=== PATIENT | male | born 1965 | race Caucasian/White ===

== ENCOUNTER 2022-06-29 19:35 | Inpatient (IN) | payer OTHER, BC ==
[~2022-06-29 19:35] MED LIST: Iopamidol-370 76% 500 ML 1 ML ONE
[2022-06-29] MEDS ORDERED: FENTANYL 50 MCG/ML 1 ML VIAL ONE (19:47)
[2022-06-29 20:17] LABS: Hemoglobin 13.5 g/dL (14.0-18.0); Mean Corpuscular HGB CONC 34.3 g/dL (32.0-36.0); Mean Corpuscular Hemoglobin 31.2 pg (27.0-31.0); Mean Corpuscular Volume 90.8 fl (78.0-98.0); Mean Platelet Volume 8.4 fL (7.4-10.4); Platelet Count 164 10x3/uL (130-400); RBC Distribution Width 12.8 % (11.5-14.5); Red Blood Cell (RBC) Count 4.34 mill/uL (4.70-6.10); White Blood Cell (WBC) Count 7.7 10x3/uL (4.8-10.8)
[2022-06-29 20:23] LABS: PTT 34.4 sec (22.9-36.1); Prothrombin Time 13.5 sec (12.0-14.7)
[2022-06-29 20:25] LABS: Acetaminophen Less than 10.0 mcg/mL (10.0-30.0); Alcohol 325 mg/dL (Less than 10); CK (CPK) 104 U/L (30-200); Salicylate Less than 8.0 mg/dL (15.0-30.0)
[2022-06-29 20:28] LABS: ALT (SGPT) 61 U/L (8-55); AST (SGOT) 121 U/L (5-34); Albumin 3.9 g/dL (3.5-5.0); Alkaline Phosphatase 160 U/L (40-110); Anion Gap 18 mmol/L (10-20); BUN (Urea Nitrogen) 11 mg/dL (8.4-25.7); Bilirubin, Total 0.6 mg/dL (0.2-1.2); Calc. Creatinine Clearance 0 mL/min (70-130); Calcium 8.9 mg/dL (7.8-10.44); Carbon Dioxide 22 mmol/L (22-29); Chloride 101 mmol/L (98-107); Estimated GFR 86; Globulin 2.5 g/dL (2.4-3.5); Glucose 277 mg/dL (70-105); Lipase 18 U/L (8-78); Potassium 3.3 mmol/L (3.5-5.1); Protein, Total 6.4 g/dL (6.0-8.3); Sodium 138 mmol/L (136-145)
[2022-06-29 20:45] LABS: Band 2 % (5-11); Lymphocytes 58 % (21-51); MDiff Complete? YES; Monocytes 4 % (0-10); Neutrophil 36 % (42-75); Nucleated RBC 1 % (0)
[2022-06-29 20:47] LABS: SARS-CoV-2 NAA Rapid Test Not Detected (NotDetected)
[2022-06-29] MEDS ORDERED: Ketorolac Tromethamine 30 MG/ML VIAL ONE (21:28)
[2022-06-29] MEDS ORDERED: Multivitamins, Adult 10 ML, Thiamine HCl 100 MG, Folic Acid 1 MG in Dextrose 5 %-0.45 %... IV SCH (21:30)
[2022-06-29] MEDS ORDERED: hydrALAZINE 20 MG/ML VIAL SLOW IVP PRN (21:30)
[2022-06-29] MEDS ORDERED: Acetaminophen 325 MG TAB PO SCH (21:30)
[2022-06-29] MEDS ORDERED: Cyclobenzaprine 10 MG TAB PO PRN (21:30)
[2022-06-29] MEDS ORDERED: Ondansetron PF 4 MG/2 ML Vial IVP PRN (21:30)
[2022-06-29] MEDS ORDERED: Morphine 4 MG/ML VIAL SLOW IVP PRN ×2 (21:37→21:41)
[2022-06-29] MEDS ORDERED: Dextrose 50% Abboject 50 ML SYRINGE SLOW IVP PRN (21:39)
[2022-06-29] MEDS ORDERED: TETANUS, DIPHTHERIA TOX,ADULT (TDVAX) 0.5 ML VIAL IM ONE (21:39)
[2022-06-29] MEDS ORDERED: Ondansetron ODT 4 MG TAB PO PRN (21:39)
[2022-06-29] MEDS ORDERED: Insulin Regular 300 UNITS/3 ML VIAL SC PRN (21:39)
[2022-06-29] MEDS ORDERED: Dextrose 5% in Water 1,000 ML IV PRN (21:39)
[2022-06-29 21:49] LABS: Hemoglobin A1c 8.5 % (4.0-6.0)
[2022-06-29 21:54] LABS: Magnesium 1.3 mg/dL (1.6-2.6); Phosphorus 2.1 mg/dL (2.3-4.7)
[2022-06-29 21:58] LABS: Lactic Acid 2.3 mmol/L (0.5-2.2)
[2022-06-29] MEDS ORDERED: Magnesium 2 GM/50 ML(in water) 4 GM in Premix Bag 1 BAG IVPB SCH (22:30)
[2022-06-29] MEDS: Sodium Chloride 0.9% 1,000 ML IV SCH (22:43)
[2022-06-29] MEDS: Oxazepam 10 MG CAP PO SCH (22:44)
[2022-06-29] MEDS: traMADol HCl 50 MG TAB PO SCH (22:44)
[2022-06-29] MEDS: Acetaminophen 500 MG TAB PO SCH (22:44)
[2022-06-29] MEDS: Gabapentin 300 MG CAP PO SCH (22:44)
[2022-06-29] MEDS ORDERED: Potassium Phosphate 30 MMOL, Magnesium Sulfate 4 GM in Sodium Chloride 0.9% 250 ML 250 ML IVPB SCH (22:45)
[2022-06-29] MEDS: Ketorolac Tromethamine 30 MG/ML VIAL IVP SCH (23:26)
[2022-06-30] MEDS: traMADol HCl 50 MG TAB PO SCH ×4 (03:34→21:05)
[2022-06-30] MEDS: Acetaminophen 500 MG TAB PO SCH ×4 (03:34→21:05)
[2022-06-30 06:22] LABS: #Basophils 0.1 thou/uL (0.0-0.2); #Eosinphils 0.1 thou/uL (0.0-0.7); #Lymphocytes 1.8 thou/uL (1.20-3.40); #Monocytes 0.6 thou/uL (0.11-0.59); #Neutrophils 2.8 thou/uL (1.40-6.50); %Basophils 1.1 % (0.0-1.0); %Eosinophils 1.8 % (0.0-10.0); %Lymphocytes 34.1 % (21.0-51.0); Hemoglobin 12.3 g/dL (14.0-18.0); Mean Corpuscular HGB CONC 33.3 g/dL (32.0-36.0); Mean Corpuscular Hemoglobin 30.4 pg (27.0-31.0); Mean Corpuscular Volume 91.4 fl (78.0-98.0); Mean Platelet Volume 8.5 fL (7.4-10.4); Platelet Count 141 10x3/uL (130-400); RBC Distribution Width 12.8 % (11.5-14.5); Red Blood Cell (RBC) Count 4.05 mill/uL (4.70-6.10); White Blood Cell (WBC) Count 5.4 10x3/uL (4.8-10.8)
[2022-06-30] MEDS: Sodium Chloride 0.9% 1,000 ML IV SCH ×2 (06:25→16:09)
[2022-06-30] MEDS: Gabapentin 300 MG CAP PO SCH ×3 (06:25→21:06)
[2022-06-30] MEDS: Ketorolac Tromethamine 30 MG/ML VIAL IVP SCH (06:25)
[2022-06-30] MEDS: Oxazepam 10 MG CAP PO SCH ×3 (06:25→21:05)
[2022-06-30] MEDS: Insulin Regular 300 UNITS/3 ML VIAL SC PRN ×2 (06:26→17:59)
[2022-06-30] MEDS: Folic Acid/Vit B Comp W-C PO SCH (06:26)
[2022-06-30 06:46] LABS: Anion Gap 15 mmol/L (10-20); BUN (Urea Nitrogen) 11 mg/dL (8.4-25.7); Calc. Creatinine Clearance 120 mL/min (70-130); Calcium 8.4 mg/dL (7.8-10.44); Carbon Dioxide 24 mmol/L (22-29); Chloride 103 mmol/L (98-107); Estimated GFR 101; Glucose 209 mg/dL (70-105); Magnesium 2.1 mg/dL (1.6-2.6); Phosphorus 3.8 mg/dL (2.3-4.7); Potassium 3.2 mmol/L (3.5-5.1); Sodium 139 mmol/L (136-145)
[2022-06-30] MEDS ORDERED: Potassium Chloride 40 MEQ in Sodium Chloride 0.9% 250 ML 250 ML IVPB SCH (08:15)
[2022-06-30] MEDS ORDERED: Famotidine 20 MG TAB PO SCH (09:00)
[2022-06-30] MEDS: Senokot S 8.6-50 MG TAB PO SCH ×2 (09:35→21:06)
[2022-06-30] MEDS: Polyethylene Glycol 3350 17 GM Packet PO SCH (09:35)
[2022-06-30] MEDS: Metoprolol Tartrate 50 MG TAB PO SCH ×2 (09:36→21:06)
[2022-06-30] MEDS: Thiamine 100 MG TAB PO SCH (09:37)
[2022-06-30] MEDS: Multivitamin W/ Minerals 1 TAB PO SCH (09:37)
[2022-06-30] MEDS: Tamsulosin HCl 0.4 MG CAP PO SCH (09:37)
[2022-06-30] MEDS: Amlodipine 5 MG TAB PO SCH (09:37)
[2022-06-30] MEDS: Ibuprofen 200 MG TAB PO SCH ×2 (14:14→21:04)
[2022-07-01] MEDS: Sodium Chloride 0.9% 1,000 ML IV SCH ×2 (01:21→12:23)
[2022-07-01] MEDS: traMADol HCl 50 MG TAB PO SCH ×2 (03:52→09:28)
[2022-07-01] MEDS: Acetaminophen 500 MG TAB PO SCH ×3 (03:52→16:58)
[2022-07-01] MEDS: Gabapentin 300 MG CAP PO SCH ×2 (06:33→14:12)
[2022-07-01] MEDS: Ibuprofen 200 MG TAB PO SCH ×2 (06:33→14:12)
[2022-07-01] MEDS: Oxazepam 10 MG CAP PO SCH ×2 (06:33→14:13)
[2022-07-01] MEDS: Folic Acid/Vit B Comp W-C PO SCH (06:33)
[2022-07-01 07:10] LABS: Anion Gap 10 mmol/L (10-20); BUN (Urea Nitrogen) 8 mg/dL (8.4-25.7); Calc. Creatinine Clearance 142 mL/min (70-130); Calcium 8.2 mg/dL (7.8-10.44); Carbon Dioxide 24 mmol/L (22-29); Chloride 106 mmol/L (98-107); Estimated GFR 106; Glucose 131 mg/dL (70-105); Magnesium 1.3 mg/dL (1.6-2.6); Phosphorus 2.6 mg/dL (2.3-4.7); Sodium 137 mmol/L (136-145)
[2022-07-01 07:34] LABS: #Eosinphils 0.1 thou/uL (0.0-0.7); #Monocytes 0.3 thou/uL (0.11-0.59); #Neutrophils 1.9 thou/uL (1.40-6.50); %Basophils 0.5 % (0.0-1.0); %Eosinophils 2.4 % (0.0-10.0); %Lymphocytes 30.5 % (21.0-51.0); %Monocytes 9.3 % (0.0-10.0); %Neutrophils 57.3 % (42.0-75.0); Hemoglobin 11.4 g/dL (14.0-18.0); Mean Corpuscular HGB CONC 32.9 g/dL (32.0-36.0); Mean Corpuscular Hemoglobin 30.6 pg (27.0-31.0); Mean Corpuscular Volume 92.9 fl (78.0-98.0); Mean Platelet Volume 8.5 fL (7.4-10.4); Platelet Count 89 10x3/uL (130-400); Platelet Morphology Comment Appears Decreased; RBC Distribution Width 12.6 % (11.5-14.5); RBC Morphology Normal; Red Blood Cell (RBC) Count 3.73 mill/uL (4.70-6.10); White Blood Cell (WBC) Count 3.4 10x3/uL (4.8-10.8)
[2022-07-01] MEDS ORDERED: Magnesium 2 GM/50 ML(in water) 4 GM in Premix Bag 1 BAG IVPB SCH (08:15)
[2022-07-01] MEDS ORDERED: Potassium Phosphate 30 MMOL, Magnesium Sulfate 4 GM in Sodium Chloride 0.9% 250 ML 250 ML IVPB SCH (08:45)
[2022-07-01 09:16] VITALS: TEMP 97.8
[2022-07-01] MEDS: Polyethylene Glycol 3350 17 GM Packet PO SCH (09:27)
[2022-07-01] MEDS: Thiamine 100 MG TAB PO SCH (09:28)
[2022-07-01] MEDS: Tamsulosin HCl 0.4 MG CAP PO SCH (09:28)
[2022-07-01] MEDS: Metoprolol Tartrate 50 MG TAB PO SCH (09:28)
[2022-07-01] MEDS: Multivitamin W/ Minerals 1 TAB PO SCH (09:28)
[2022-07-01] MEDS: Amlodipine 5 MG TAB PO SCH (09:29)
[2022-07-01] MEDS: Senokot S 8.6-50 MG TAB PO SCH (09:29)
[2022-07-01] MEDS ORDERED: metFORMIN 500 MG TAB PO SCH ×2 (11:30→17:00)
[2022-07-01] MEDS: Acetaminophen/Codeine 30-300mg Tablet PO SCH ×2 (11:49→16:57)
[2022-07-01 17:25] VITALS: BP 147/89
== END 2022-07-01 17:20 | disposition home or self-care (01) | DRG 184 ==
LOC: ERS 19:35 → SURG B 20:50 → OBSVTOIN 06-30 14:31
PROVIDERS: ADMIT Surgery; ATTEND Surgery
DX: S22.41XA Multiple fractures of ribs, right side, initial encounter for closed fracture (principal); K86.2 Cyst of pancreas; Z20.822 Contact with and (suspected) exposure to COVID-19; F10.129 Alcohol abuse with intoxication, unspecified; Y90.8 Blood alcohol level of 240 mg/100 ml or more; S06.0X0A Concussion without loss of consciousness, initial encounter; I10 Essential (primary) hypertension; E11.65 Type 2 diabetes mellitus with hyperglycemia; S00.81XA Abrasion of other part of head, initial encounter; S80.812A Abrasion, left lower leg, initial encounter; S80.211A Abrasion, right knee, initial encounter; S50.311A Abrasion of right elbow, initial encounter; S40.811A Abrasion of right upper arm, initial encounter; R40.2412 Glasgow coma scale score 13-15, at arrival to emergency department; R33.9 Retention of urine, unspecified; V44.5XXA Car driver injured in collision with heavy transport vehicle or bus in traffic accident, initial encounter; Y92.410 Unspecified street and highway as the place of occurrence of the external cause; Z90.49 Acquired absence of other specified parts of digestive tract; Z87.891 Personal history of nicotine dependence
CPT/HCPCS: 36415; 36416; 70450; 71045; 71260; 72125; 72170; 74177; 80048; 80053; 80307; 82550; 83036; 83605; 83690; 83735; 84100; 85025; 85610; 85730; 86850; 86900; 86901; 93005; 94640; 96375; 96376; G0378; G0390; J1815; J1885; J3010; J3411; J3475; J3480; J7042; J7050; J7620; Q9967; U0002

== ENCOUNTER 2022-11-24 15:58 | Inpatient (IN) | payer BC ==
[~2022-11-24 15:58] MED LIST changes: -Iopamidol-370 76% 500 ML 1 ML ONE; +Iopamidol-370 76% 500 ML MDV (1 ML CHARGE) ONE
[2022-11-24 17:15] LABS: #Basophils 0.1 thou/uL (0.0-0.2); #Lymphocytes 2.4 thou/uL (1.20-3.40); #Monocytes 0.5 thou/uL (0.11-0.59); #Neutrophils 4.1 thou/uL (1.40-6.50); %Basophils 0.8 % (0.0-1.0); %Eosinophils 0.6 % (0.0-10.0); %Lymphocytes 33.3 % (21.0-51.0); %Monocytes 7.5 % (0.0-10.0); %Neutrophils 57.8 % (42.0-75.0); Mean Corpuscular HGB CONC 34.9 g/dL (32.0-36.0); Mean Corpuscular Hemoglobin 32.9 pg (27.0-31.0); Mean Corpuscular Volume 94.1 fl (78.0-98.0); Mean Platelet Volume 8.7 fL (7.4-10.4); Platelet Count 148 10x3/uL (130-400); RBC Distribution Width 13.1 % (11.5-14.5); Red Blood Cell (RBC) Count 4.27 mill/uL (4.70-6.10); White Blood Cell (WBC) Count 7.1 10x3/uL (4.8-10.8)
[2022-11-24 17:39] LABS: ALT (SGPT) 92 U/L (8-55); AST (SGOT) 234 U/L (5-34); Albumin 3.8 g/dL (3.5-5.0); Alcohol 266 mg/dL (Less than 10); Alkaline Phosphatase 355 U/L (40-110); Anion Gap 20 mmol/L (10-20); BUN (Urea Nitrogen) 9 mg/dL (8.4-25.7); Bilirubin, Total 1.7 mg/dL (0.2-1.2); CK (CPK) 55 U/L (30-200); Calc. Creatinine Clearance 0 mL/min (70-130); Calcium 9.4 mg/dL (7.8-10.44); Carbon Dioxide 24 mmol/L (22-29); Chloride 98 mmol/L (98-107); Estimated GFR 101; Globulin 2.5 g/dL (2.4-3.5); Glucose 248 mg/dL (70-105); Lipase 120 U/L (8-78); Protein, Total 6.3 g/dL (6.0-8.3); Sodium 139 mmol/L (136-145)
[2022-11-24 18:55] LABS: Bacteria/HPF 4+ HPF (None Seen); Bilirubin Negative (Negative); Blood, Urine 1+ (Negative); Clarity Turbid (Clear); Glucose, Urine (Dipstick) 100 mg/dL (Negative); Ketone, Urine Negative (Negative); Leukocyte Negative Leu/uL (Negative); Mucous/LPF Rare LPF (<2+); Nitrite Negative (Negative); Protein, Urine (Dipstick) 70 mg/dL (Neg-Trace); RBC/HPF 0-3 HPF (0-3); Specific Gravity, Urine 1.011 (1.002-1.036); Squamous Epithelial None Seen HPF (0-3); pH, Urine 6.5 (5.0-9.0)
[2022-11-24 19:19] LABS: INR-International Normal Ratio 1.1; Prothrombin Time 14.9 sec (12.0-14.7)
[2022-11-24 19:20] LABS: PTT 34.4 sec (22.9-36.1)
[2022-11-24] MEDS ORDERED: Pantoprazole 40 MG VIAL ONE (19:26)
[2022-11-24] MEDS ORDERED: Ondansetron PF 4 MG/2 ML Vial ONE (19:29)
[2022-11-24] MEDS ORDERED: Morphine 4 MG/ML VIAL ONE ×2 (19:29→21:44)
[2022-11-24] MEDS ORDERED: Potassium Chloride 40 MEQ in Sodium Chloride 0.9% 250 ML 250 ML IVPB SCH (20:00)
[2022-11-24] MEDS ORDERED: LORazepam 2 MG/ML SYR.(CARPUJECT) ONE ×3 (20:11→21:32)
[2022-11-24] MEDS ORDERED: Ondansetron ODT 4 MG TAB PO PRN (21:15)
[2022-11-24] MEDS ORDERED: Lorazepam 2 MG/ML VIAL IM PRN (21:15)
[2022-11-24] MEDS ORDERED: Electrolyte Replacement Protocol 1 EACH FS SCH (21:15)
[2022-11-24] MEDS ORDERED: Thiamine HCl 100 MG, Folic Acid 1 MG in Dextrose 5 %-0.45 % NaCl 1,000 ML IVPB SCH (22:00)
[2022-11-24] MEDS ORDERED: Thiamine HCl 200 MG/2 ML VIAL SLOW IVP SCH (23:00)
[2022-11-24] MEDS: Sodium Chloride 0.9% 1,000 ML IV SCH (23:33)
[2022-11-25 00:23] VITALS: BMI 26.0
[2022-11-25] MEDS ORDERED: Metoprolol Tartrate 25 MG TAB PO SCH (00:45)
[2022-11-25] MEDS: traMADol HCl 50 MG TAB PO PRN (03:42)
[2022-11-25 04:33] LABS: ALT (SGPT) 85 U/L (8-55); AST (SGOT) 250 U/L (5-34); Alkaline Phosphatase 321 U/L (40-110); Anion Gap 15 mmol/L (10-20); BUN (Urea Nitrogen) 7 mg/dL (8.4-25.7); Calc. Creatinine Clearance 117 mL/min (70-130); Calcium 8.4 mg/dL (7.8-10.44); Carbon Dioxide 22 mmol/L (22-29); Chloride 106 mmol/L (98-107); Estimated GFR 104; Globulin 2.4 g/dL (2.4-3.5); Glucose 206 mg/dL (70-105); Potassium 2.9 mmol/L (3.5-5.1); Protein, Total 5.4 g/dL (6.0-8.3); Sodium 140 mmol/L (136-145)
[2022-11-25 05:00] LABS: #Lymphocytes 0.9 thou/uL (1.20-3.40); #Monocytes 0.3 thou/uL (0.11-0.59); #Neutrophils 1.8 thou/uL (1.40-6.50); %Basophils 0.7 % (0.0-1.0); %Eosinophils 0.8 % (0.0-10.0); %Lymphocytes 28.5 % (21.0-51.0); %Monocytes 10.9 % (0.0-10.0); %Neutrophils 59.1 % (42.0-75.0); Hemoglobin 12.6 g/dL (14.0-18.0); Mean Corpuscular HGB CONC 35.9 g/dL (32.0-36.0); Mean Corpuscular Hemoglobin 33.8 pg (27.0-31.0); Mean Corpuscular Volume 94.2 fl (78.0-98.0); Mean Platelet Volume 8.7 fL (7.4-10.4); Platelet Count 90 10x3/uL (130-400); Platelet Morphology Comment Appears Decreased; RBC Distribution Width 12.9 % (11.5-14.5); Red Blood Cell (RBC) Count 3.72 mill/uL (4.70-6.10)
[2022-11-25] MEDS: Lorazepam 1 MG TAB PO PRN ×4 (05:10→14:11)
[2022-11-25] MEDS: Sodium Chloride 0.9% 1,000 ML IV SCH ×3 (05:10→19:59)
[2022-11-25] MEDS: Potassium Chloride 20 MEQ in Premix Bag 1 BAG IVPB SCH ×4 (08:17→14:12)
[2022-11-25] MEDS: Famotidine 20 MG TAB PO SCH ×2 (08:18→19:59)
[2022-11-25] MEDS ORDERED: Multivit, Therapeutic 1 TAB PO SCH (09:00)
[2022-11-25] MEDS ORDERED: Folic Acid 1 MG TAB PO SCH (09:00)
[2022-11-25] MEDS ORDERED: Multivitamins, Adult 10 ML, Folic Acid 1 MG, Thiamine HCl 100 MG in Dextrose 5 %-0.45 %... IV SCH ×2 (11:00→16:00)
[2022-11-25] MEDS: Metoprolol Tartrate 25 MG TAB PO SCH (19:58)
[2022-11-25] MEDS ORDERED: Lorazepam 1 MG TAB PO PRN (21:15)
[2022-11-26 07:23] LABS: Magnesium 0.8 mg/dL (1.6-2.6)
[2022-11-26] MEDS ORDERED: Magnesium Sulfate In Water 4 GM in Premix Bag 1 BAG IVPB SCH (08:00)
[2022-11-26] MEDS ORDERED: Multivitamins, Adult 10 ML, Folic Acid 1 MG, Thiamine HCl 100 MG in Dextrose 5 %-0.45 %... IV SCH (09:00)
[2022-11-26] MEDS: Famotidine 20 MG TAB PO SCH (09:51)
[2022-11-26] MEDS: traMADol HCl 50 MG TAB PO PRN ×2 (09:51→16:51)
[2022-11-26] MEDS: Metoprolol Tartrate 25 MG TAB PO SCH (09:52)
[2022-11-26] MEDS ORDERED: Sodium Chloride 0.9% 1,000 ML IV SCH (14:00)
[2022-11-26 15:20] LABS: ALT (SGPT) 78 U/L (8-55); AST (SGOT) 192 U/L (5-34); Albumin 3.4 g/dL (3.5-5.0); Alkaline Phosphatase 311 U/L (40-110); Anion Gap 14 mmol/L (10-20); BUN (Urea Nitrogen) 5 mg/dL (8.4-25.7); Bilirubin, Total 3.8 mg/dL (0.2-1.2); Calc. Creatinine Clearance 121 mL/min (70-130); Calcium 8.7 mg/dL (7.8-10.44); Carbon Dioxide 24 mmol/L (22-29); Chloride 101 mmol/L (98-107); Estimated GFR 104; Globulin 2.6 g/dL (2.4-3.5); Glucose 182 mg/dL (70-105); Sodium 136 mmol/L (136-145)
[2022-11-26] MEDS ORDERED: Potassium Chloride 20 MEQ TAB PO SCH (15:41)
[2022-11-26 15:44] VITALS: BP 146/83; TEMP 98.2
[2022-11-26] MEDS ORDERED: Lorazepam 1 MG TAB PO PRN (21:15)
[2022-11-27] MEDS ORDERED: Sodium Chloride 0.9% 1,000 ML IV SCH (14:05)
[2022-11-27] MEDS ORDERED: Thiamine 100 MG TAB PO SCH (21:00)
[2022-11-27] MEDS ORDERED: Lorazepam 0.5 MG TAB PO PRN (21:15)
[2022-11-28] MEDS ORDERED: Thiamine 100 MG TAB PO SCH (09:00)
[2022-11-28] MEDS ORDERED: Folic Acid 1 MG TAB PO SCH (09:00)
[2022-11-28] MEDS ORDERED: Multivit, Therapeutic 1 TAB PO SCH (09:00)
== END 2022-11-26 17:17 | disposition home or self-care (01) | DRG 896 ==
LOC: ERS 15:58 → IMCU/EMU 21:39 → T4-A 11-25 12:13
PROVIDERS: ADMIT Internal Medicine; ATTEND Internal Medicine
PROC: HZ2ZZZZ Detoxification Services for Substance Abuse Treatment (ICD-10-PCS; principal; 2022-11-24)
DX: F10.139 Alcohol abuse with withdrawal, unspecified (principal); K85.20 Alcohol induced acute pancreatitis without necrosis or infection; Y90.8 Blood alcohol level of 240 mg/100 ml or more; I10 Essential (primary) hypertension; F10.129 Alcohol abuse with intoxication, unspecified; E87.6 Hypokalemia; K70.10 Alcoholic hepatitis without ascites; E11.65 Type 2 diabetes mellitus with hyperglycemia; Z79.899 Other long term (current) drug therapy; Z79.84 Long term (current) use of oral hypoglycemic drugs
CPT/HCPCS: 36415; 70450; 71045; 74177; 80053; 80307; 81003; 81015; 82140; 82550; 83690; 83735; 84484; 85025; 85610; 85730; 93005; 96365; 96366; 96367; 96374; 96375; 96376; C9113; J1650; J2060; J2270; J2405; J3411; J3475; J3480; J7042; J7050; Q9967